=== PATIENT | female | born 2005 | race African-American/Black ===

== ENCOUNTER 2023-11-25 15:09 | Emergency (ER) | payer SELFPAY ==
[2023-11-25 15:27] VITALS: BP 114/68; PULSE 72; RESP 16; TEMP 36.3; O2SAT 100
--- NOTE | 2023-11-25 15:48 | ED.EYEPROB ---
HPI - Eye Problem General Chief complaint: Eye Problems Stated complaint: Left Eye Irritation Time Seen by Provider: 11/25/23 15:37 Source: patient and RN notes reviewed Mode of arrival: ambulatory Limitations: no limitations History of Present Illness HPI Narrative: Patient presents today complaining of left eye redness and irritation x2 days. States her eye became irritated after she rubbed it while having her contacts in. She also reports some photophobia. She has tried no interventions prior to arrival. She is currently wearing glasses. Related Data Allergies Allergy/AdvReac Type Severity Reaction Status Date / Time No Known Allergies Allergy Verified 11/25/23 15:32 Review of Systems Review of Systems: CONSTITUTIONAL: Denies body aches, fever, chills, or sweats. EYES: + left eye redness and irritation ENT: Denies rhinorrhea, congestion, sore throat, or otalgia. CARDIOVASCULAR: Denies chest pain, palpitations, or edema. RESPIRATORY: Denies cough or dyspnea. GASTROINTESTINAL: Denies abdominal pain, nausea, vomiting, or diarrhea. GENITOURINARY: Denies dysuria or hematuria. SKIN: Denies rash, itching, or wounds. MUSCULOSKELETAL: Denies back pain, joint pain, or myalgia. NEUROLOGIC: Denies headache, numbness, tingling, or weakness. PSYCH: Denies depression or anxiety. PMFSH Comments At time of signature, I have reviewed and agree with nursing past medical, surgical, social and family history unless otherwise noted. Please see nursing chart for further information. There is no relevant family history pertinent to the presenting complaint Exam Narrative: GENERAL: Well-appearing, well-nourished, and in no acute distress. HEAD: Normocephalic, atraumatic. EYES: EOMI. PERRL. Left eye: injected conjunctiva with fluorescein uptake. See procedure note. Right eye normal. Lids and lashes normal bilaterally. ENT: Mucous membranes pink and moist. NECK: Normal AROM. CHEST: No respiratory distress. EXTREMITIES: Normal range of motion. No edema. SKIN: Warm, dry, no rash. Capillary refill normal. Normal skin turgor. NEURO: No focal deficits. Alert and oriented x3. Gait steady. PSYCH: Normal affect. No signs of depression or anxiety. Course Course Level of Care: Express Care Visit Vital Signs Vital signs: Vital Signs Temperature 97.4 F L 11/25/23 15:27 Pulse Rate 72 11/25/23 15:27 Respiratory Rate 16 11/25/23 15:27 Blood Pressure 114/68 11/25/23 15:27 Pulse Oximetry 100 11/25/23 15:27 Oxygen Delivery Room Air 11/25/23 15:27 Temperature 97.4 F L 11/25/23 15:27 Pulse Rate 72 11/25/23 15:27 Respiratory Rate 16 11/25/23 15:27 Blood Pressure 114/68 11/25/23 15:27 Pulse Oximetry 100 11/25/23 15:27 Oxygen Delivery Room Air 11/25/23 15:27 Reviewed Procedures Other Procedure Procedure 1: Other Procedure: Left eye was anesthetized with 1 drop of tetracaine and anesthesia was achieved. The eye was flushed with eye wash. Lid was inverted and examined. Cornea was dyed with fluorescein and 1 punctate abrasion was noted to the 9 o'clock position of the iris. Pt tolerated procedure well. MDM - Eye Problem MDM Narrative Medical decision making narrative: Patient has a punctate corneal abrasion. Prescription for ofloxacin sent to pharmacy. Also instructed patient to follow-up with her eye doctor within the next week to ensure healing. Patient agrees with plan. Anticipatory guidance given. Differential Diagnosis Differential diagnosis: Likely corneal abrasion and conjunctivitis Critical Care Time Critical Care Time Critical Care Time: No Discharge Plan Discharge Clinical Impression: Abrasion of left cornea Qualifiers: Encounter type: initial encounter Qualified Code(s): S05.02XA - Injury of conjunctiva and corneal abrasion without foreign body, left eye, initial encounter Patient Disposition: Home, Self-Care Condition: Stable Instruction
== END 2023-11-25 15:58 | disposition home or self-care (01) ==
PROVIDERS: Emergency Provider Nurse Practitioner
DX: S05.02XA Injury of conjunctiva and corneal abrasion without foreign body, left eye, initial encounter (principal); X58.XXXA Exposure to other specified factors, initial encounter
CPT/HCPCS: 99213; A9270; G0463